=== PATIENT | female | born 1950 | race Caucasian/White ===

== ENCOUNTER 2017-05-27 05:25 | Inpatient (IN) | payer OTHER, MEDICARE ==
[2017-05-15 12:08] LABS: HEMATOCRIT 42.7 % (37.0-47.0); HEMOGLOBIN 14.8 gm/dL (12.0-15.0); MCH 28.8 pg (26.0-34.0); MCHC 34.6 g/dL (28.0-37.0); MCV 83.1 fL (80.0-100.0); RBC 5.14 mil/uL (4.20-5.00); RDW 12.9 % (10.5-14.5); WBC 6.3 thou/uL (4.0-11.0)
[2017-05-15 12:19] LABS: ALBUMIN 3.8 g/dL (3.4-5.0); CALCIUM 9.8 mg/dL (8.5-10.1); CREATININE 0.6 mg/dL (0.6-1.0); POTASSIUM 4.2 mmol/L (3.5-5.1)
[2017-05-15 12:20] LABS: PROTIME 10.2 Seconds (9.3-11.4)
[2017-05-15 12:44] LABS: URINE BILIRUBIN NEGATIVE (Negative); URINE BLOOD NEGATIVE (Negative); URINE CLARITY CLEAR; URINE COLOR YELLOW; URINE GLUCOSE-RANDOM* NEGATIVE (Negative); URINE KETONES NEGATIVE (Negative); URINE LEUKOCYTES-REFLEX NEGATIVE (Negative); URINE NITRITE-REFLEX NEGATIVE (Negative); URINE PROTEIN (DIPSTICK) NEGATIVE (Negative); URINE UROBILINOGEN 0.2 E.U./dl (0.2-1.0)
[~2017-05-27] VITALS: Ht 177.8 cm; Wt 109.2 kg
--- NOTE | ~2017-05-27 | EKG ---
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[facility] : 1950 Requested By: Eder Callejas Order Number: [id number] MD: Soto Mustafa Measurements Intervals [place] Rate: 68 P: 65 OK: 180 QRS: 2 QRSD: 104 T: 31 QT: 389 QTc: 414 Interpretive Statements Sinus arrhythmia Abnormal R-wave progression, early transition No previous ECG available for comparison Electronically Signed On 05-15-2017 16:15:24 [employer]ATING [employer] by Soto Mustafa [email or web address] <ELECTRONICALLY SIGNED> By: Soto Mustafa MD, [facility] 05/15/17 1615 1201 1201 Soto Mustafa MD, FACC /EPI
--- NOTE | ~2017-05-27 | O ---
[facility] [place] [address] OPERATIVE REPORT Name: CHANDLER FULLER Room #: 412-P [facility] IN M.R.#: [id number] Admission: 05/27/17 Attend Phys: Eder Callejas MD Discharge: Date of : 48 Report #: [id number] THIS REPORT FOR: //name// CC: Rehan Callejas DATE OF SERVICE: 05/27/2017 PREOPERATIVE DIAGNOSIS: End-stage degenerative arthritis, right hip. POSTOPERATIVE DIAGNOSIS: End-stage degenerative arthritis, right hip. PROCEDURE: Right total hip arthroplasty. SURGEON: Eder Callejas MD INDICATIONS: This 67-year-old female presents with progressive right hip pain. Clinical and radiographic evaluation confirmed moderately severe degenerative arthritis. She also has degenerative lumbar spondylosis and underwent previous lumbar decompression and fusion. Some of her symptoms are certainly related to this lumbar spine issue. She, however, has significant pain with weightbearing and rotation of the right hip and clinical radiographic findings suggest this is a significant source of her ongoing discomfort. She has elected to go ahead with right total hip arthroplasty. DESCRIPTION OF PROCEDURE: The patient was taken to the operating room where she was placed under general anesthesia. Prophylactic intravenous antibiotics were administered. She was turned to the left lateral decubitus position. The right hip, thigh and leg were meticulously prepped and draped. A slightly curving posterolateral skin incision was made. This was carried through abundant adipose tissue to expose the lateral aspect of the hip. The fascia and gluteus were incised to expose the posterior aspect of the hip joint. The short external rotators and capsule were taken down and tagged with several #1 Tevdek sutures. The hip was dislocated and rather marked degenerative change on both the femoral head and acetabulum was noted. A femoral neck osteotomy was performed and the canal was prepared with reamers and broaches. The Hernandez and Nephew hip system was utilized with the femur seemed to be best suited for a size 17 Synergy porous high offset femoral component. The size 17 broach fit quite nicely and appeared to be secure. The calcar was trimmed down to an appropriate level. The trial broach was removed and attention directed to the acetabulum. Satisfactory exposure was established and the acetabulum was sequentially reamed, gradually advancing to a 54-mm reamer. A Hernandez and Nephew size 54 three-hole hemispherical StikTite coated shell was then inserted. This was placed in alignment with her true acetabulum, which positioned this in about 20 degrees of anteversion and about 40 degrees off of vertical. The shell seated nicely and appeared to be secure. In addition, 2 cancellous screws were [address] [address] OPERATIVE REPORT Name: CHANDLER FULLER Room #: 412-P [facility] IN ..#: [id number] Admission: 05/27/17 Attend Phys: Eder Callejas MD Discharge: Date of : 48 Report #: [id number] placed through the apex of the shell engaging good periacetabular bone. They tightened down nicely and seemed to be secure. A 36-mm liner was then selected. This was impacted into the outer shell placing the 20-degree elevated rim at about the 10 o'clock posterior position. It seated nicely and appeared to be secure. A trial reduction was performed using the size 17 femoral broach and the high offset with a +4 mm neck length seemed to fit most appropriately resulting in good reapproximation of leg length, stability, and range of motion. The trial femoral broach was removed and the permanent Hernandez and Nephew Synergy porous high offset femoral component was then brought on to the field. This was impacted into position, placing this in about 15-20 degrees of anteversion, it seated nicely and appeared to be secure. A trial reduction was again performed and a +4 mm neck length seemed to fit nicely, allowing good range of motion and stability with satisfactory internal and external rotation. The trial head was removed and the permanent cobalt chrome size 36 femoral head with a +4 mm neck length was then inserted. This was impacted onto the Charlton taper and seated nicely. The hip was reduced and once again alignment, range of motion, stability and leg length were assessed and felt to be satisfactory. The entire wound was copiously irrigated and good hemostasis was confirmed. The short external rotators were then reapproximated to the bone of the greater trochanter using four #1 Tevdek sutures passed through drill holes in the bone. This resulted in good alignment and excellent hip stability. A single Hemovac was left in the wound exiting through a separate stab incision. Fascia was then closed with multiple #1 Vicryl sutures. The rather abundant adipose tissues were closed with several 0 Monocryl running sutures. The skin was closed with skin luz maria. A sterile dressing was applied. The patient was awakened and returned to recovery room in good condition. <ELECTRONICALLY SIGNED> By: Eder Callejas MD 05/28/17 1731 0948 1020 Eder Callejas MD /nt
--- NOTE | ~2017-05-27 | D ---
[facility] [place] [address] DISCHARGE SUMMARY Name: CHANDLER FULLER Room #: 412-P [facility] IN M.R.#: [id number] Admission: 05/27/17 Attend Phys: Eder Callejas MD Discharge: 05/31/17 Date of : 48 Report #: [id number] THIS REPORT FOR: //name// CC: Rehan Callejas DATE OF ADMISSION: 05/27/2017 DATE OF DISCHARGE: 05/31/2017 FINAL DIAGNOSIS: Right total hip arthroplasty. HISTORY: This 67-year-old female has progressive right hip pain with findings consistent with end-stage degenerative osteoarthritis. She also has a history of chronic back problems with previous back surgery and some chronic generalized musculoskeletal pain with chronic medications. We have elected to go ahead with right total hip arthroplasty at this time. HOSPITAL COURSE: The patient was admitted and taken to the operating room on November 21, she underwent right total hip arthroplasty which she tolerated nicely. Postoperatively, her course was slow due to relatively poor strength and some general anxiety. She was, however, able to advance from IV analgesics to oral analgesics and also resume a regular oral diet. She started with physical therapy and was able to advance to independent ambulation using a walker in the hallway, and she can go up and down stairs with some assistance. She seems safe and ready for discharge on May 31. DISCHARGE MEDICATIONS: Include Robaxin 750 mg q.i.d. p.r.n. for muscle spasm, Lipitor 20 mg daily, lisinopril 10 mg daily, Xarelto 10 mg daily, hydrocodone 10/325 one q. 4-6 hours p.r.n. for pain, metformin 500 mg b.i.d., Victoza injection once daily. She will continue with an independent exercise program at home, ____ her sense of safety and need for assistance at home, we may also organize some visiting therapy for the coming 3-5 days. I suspect she will probably be able to advance to a more independent exercise or outpatient therapy at that point. We will keep her on Xarelto for the coming 2-4 weeks. I will plan to see her back in my office in 2 weeks for followup and suture removal. <ELECTRONICALLY SIGNED> By: Eder Callejas MD 06/03/17 0746 1231 1253 Eder Callejas MD /nt
[~2017-05-27 05:25] MED LIST: AMBIEN 5 MG TABL5 M1 PO; ASPIR 8181 MG PO; CENTRUM SILVER1 EAC4 PO; GLUCOPHAGE XR500 MG PO; LIPITOR 20 MG T20 M1 PO; LISINOPRIL10 MG PO; OXYBUTYNIN 5 MG5 M2 PO; PERCOCET 10-321 EACH PO; ROBAXIN 750 MG750 MG PO; VICTOZA0.6 MG/0.1 SUBQ; VITAMIN B-12500 MCG PO; VITAMIN D-32000 UNIT PO; VITAMINC500 PO
[2017-05-27 06:51] VITALS: BP 145/86
[2017-05-27 13:59] VITALS: BP 138/79
[2017-05-27 18:20] VITALS: BP 125/69
[2017-05-27 20:59] VITALS: BP 125/65
[2017-05-27 23:48] VITALS: BP 113/66
[2017-05-28 05:23] VITALS: BP 133/67
[2017-05-28 05:54] LABS: ABSOLUTE NEUTROPHILS 8.6 thou/uL (1.4-8.2); BASOPHILS 0.2 % (0.0-2.0); EOSINOPHILS 0.2 % (0.0-3.0); HEMATOCRIT 36.5 % (37.0-47.0); HEMOGLOBIN 12.4 gm/dL (12.0-15.0); LYMPHOCYTES 13.3 % (24.0-44.0); MCH 28.2 pg (26.0-34.0); MCV 82.9 fL (80.0-100.0); MONOCYTES 10.7 % (1.0-8.0); PLATELET COUNT 209 thou/uL (150-400); POLYS 75.6 % (36.0-66.0); RDW 12.9 % (10.5-14.5); WBC 11.4 thou/uL (4.0-11.0)
[2017-05-28 06:17] LABS: CALCIUM 8.7 mg/dL (8.5-10.1); CREATININE 0.6 mg/dL (0.6-1.0); POTASSIUM 4.1 mmol/L (3.5-5.1)
[2017-05-28 07:28] VITALS: BP 134/57
[2017-05-28 15:40] VITALS: BP 131/57
[2017-05-28 20:40] VITALS: BP 115/61
[2017-05-29 04:00] VITALS: BP 121/61
[2017-05-29 06:27] LABS: HEMATOCRIT 34.7 % (37.0-47.0); HEMOGLOBIN 11.5 gm/dL (12.0-15.0); MCHC 33.3 g/dL (28.0-37.0); MCV 84.1 fL (80.0-100.0); RBC 4.12 mil/uL (4.20-5.00); RDW 13.3 % (10.5-14.5); WBC 11.7 thou/uL (4.0-11.0)
[2017-05-29 07:54] VITALS: BP 134/51
[2017-05-29 16:11] VITALS: BP 100/68
[2017-05-29 19:43] VITALS: BP 130/56
[2017-05-30 04:17] VITALS: BP 144/62
[2017-05-30 06:40] LABS: HEMOGLOBIN 11.2 gm/dL (12.0-15.0); MCH 28.5 pg (26.0-34.0); MCV 83.8 fL (80.0-100.0); RBC 3.94 mil/uL (4.20-5.00); RDW 12.9 % (10.5-14.5)
[2017-05-30 07:25] VITALS: BP 133/49
[2017-05-30 17:16] LABS: CALCIUM 9.1 mg/dL (8.5-10.1); CREATININE 0.8 mg/dL (0.6-1.0); POTASSIUM 4.4 mmol/L (3.5-5.1)
[2017-05-30 18:00] VITALS: BP 121/85
[2017-05-30 19:33] VITALS: BP 138/64
[2017-05-31 04:00] VITALS: BP 127/54
[2017-05-31 07:08] VITALS: BP 130/43
[2017-05-31 10:24] VITALS: BP 130/43
[2017-05-31 12:41] VITALS: BP 130/43
== END 2017-05-31 14:20 | disposition home or self-care (01) | DRG 470 ==
LOC: PRE 05:25 → 4N 05:34 → TBA 05:34 → 4N 10:53 → PRE 13:18 → ENTRNSPT 05-31 14:14 → EDTRNSPTSTS 05-31 14:16 → 4N 05-31 14:20
PROVIDERS: Hospitalist; Orthopaedic Surgery
PROC: 0SR90JZ Replacement of Right Hip Joint with Synthetic Substitute, Open Approach (ICD-10-PCS; principal; 2017-05-27)
DX: M16.11 Unilateral primary osteoarthritis, right hip (principal); I10 Essential (primary) hypertension; G47.33 Obstructive sleep apnea (adult) (pediatric); E11.65 Type 2 diabetes mellitus with hyperglycemia; E78.00 Pure hypercholesterolemia, unspecified; G89.29 Other chronic pain; Z88.6 Allergy status to analgesic agent; Z88.1 Allergy status to other antibiotic agents; Z88.2 Allergy status to sulfonamides; Z79.82 Long term (current) use of aspirin; Z79.899 Other long term (current) drug therapy
CPT/HCPCS: 10790; 50010; 50101; 50382; 50414; 51412; 51771; 53000; 53367; 56521; 56525; 56527; 62110; 62900; 70005